=== PATIENT | male | born 1950 | race Two or more races ===

== ENCOUNTER → 2017-03-04 | Outpatient (REF) | payer MEDICARE ==
[2017-03-07 00:06] LABS: Lyme Disease IgG/IgM Antibodie <0.91 ISR (0.00-0.90); Lyme Disease IgM Ab Quantitati <0.80 index (0.00-0.79)
== END ==
LOC: M SFHCLERA 19:43
PROVIDERS: ATTEND Nurse Practitioner Family
DX: Z11.59 Encounter for screening for other viral diseases (principal)

== ENCOUNTER → 2017-11-30 | Outpatient (REF) | payer MEDICARE ==
[2017-11-30 13:50] LABS: SLIDE REVIEW Report; SOURCE PERIPHERAL SMEAR
[2017-11-30 14:00] LABS: FERRITIN 161 NG/ML (26-388); IRON (FE) 134 UG/DL (65-175); PERCENT SATURATION 35.9 % (19.7-50.0); TOTAL IRON BINDING CAPACITY 373 UG/DL (250-450)
[2017-11-30 14:13] LABS: VITAMIN B12 LEVEL 767 PG/ML (247-911)
[2017-12-01 12:16] LABS: HEPATITIS C VIRUS ABY INDEX 0.3 INDEX (<0.8)
== END ==
LOC: M LAB REF 13:10
DX: D69.6 Thrombocytopenia, unspecified (principal)
CPT/HCPCS: 83550

== ENCOUNTER → 2017-12-14 | Outpatient (REF) | payer MEDICARE ==
[2017-12-14 19:31] LABS: APPEARANCE, URINE CLEAR (CLEAR); BACTERIA, URINE AUTO 1+ (NEGATIVE); BILIRUBIN, URINE AUTO NEGATIVE (NEGATIVE); BLOOD, URINE BLOOD NEGATIVE (NEGATIVE); COLOR, URINE YELLOW (YELLOW); GLUCOSE, URINE (UA) AUTO 1+ mg/dL (NEGATIVE); KETONE, URINE AUTO NEGATIVE (NEGATIVE); LEUKOCYTE ESTERASE, URINE AUTO NEGATIVE (NEGATIVE); MUCUS, URINE SMALL (NEGATIVE); NITRITE, URINE AUTO NEGATIVE (NEGATIVE); PROTEIN, URINE AUTO 1+ mg/dL (NEGATIVE); RBC, URINE AUTO 0 /HPF (0-3); SPECIFIC GRAVITY URINE AUTO 1.021 (1.002-1.035); SQUAMOUS EPITHELIAL CELL UR AU 0 /HPF (0-6); UROBILINOGEN, URINE AUTO 0.2 mg/dL (0.0-2.0); WBC, URINE AUTO 0 /HPF (0-3)
== END ==
LOC: M SMT 17:22
DX: N40.1 Benign prostatic hyperplasia with lower urinary tract symptoms (principal)
CPT/HCPCS: 81001

== ENCOUNTER → 2018-01-13 | Outpatient (REF) | payer MEDICARE ==
[2018-01-13 20:52] LABS: APPEARANCE, URINE CLEAR (CLEAR); BACTERIA, URINE AUTO NEGATIVE (NEGATIVE); BILIRUBIN, URINE AUTO NEGATIVE (NEGATIVE); BLOOD, URINE BLOOD NEGATIVE (NEGATIVE); COLOR, URINE YELLOW (YELLOW); GLUCOSE, URINE (UA) AUTO NEGATIVE (NEGATIVE); KETONE, URINE AUTO NEGATIVE (NEGATIVE); LEUKOCYTE ESTERASE, URINE AUTO NEGATIVE (NEGATIVE); MUCUS, URINE SMALL (NEGATIVE); NITRITE, URINE AUTO NEGATIVE (NEGATIVE); PROTEIN, URINE AUTO 1+ mg/dL (NEGATIVE); RBC, URINE AUTO 0 /HPF (0-3); SQUAMOUS EPITHELIAL CELL UR AU 0 /HPF (0-6); UROBILINOGEN, URINE AUTO 0.2 mg/dL (0.0-2.0); WBC, URINE AUTO 0 /HPF (0-3)
== END ==
LOC: M SMT 17:12
DX: N40.1 Benign prostatic hyperplasia with lower urinary tract symptoms (principal)
CPT/HCPCS: 81001

== ENCOUNTER → 2018-02-17 | Outpatient (CLI) | payer MEDICARE | LOC: M SMT 10:21 | DX: N40.1 Benign prostatic hyperplasia with lower urinary tract symptoms (principal) | CPT/HCPCS: 76857 ==

== ENCOUNTER → 2018-04-07 | Outpatient (REF) | payer MEDICARE ==
[2018-04-07 12:52] LABS: BASO % 0.5 % (0.0-1.0); EOS # 0.1 10^3/uL (0.0-0.50); EOS % 2.2 % (0.0-3.0); HEMOGLOBIN 14.5 g/dl (13.5-17.5); IMMATURE GRANULOCYTE % 0.3 % (0-3.0); LYMPH # 1.4 10^3/uL (1.5-4.5); LYMPH % 22.5 % (24.0-44.0); MEAN CORPUSCULAR VOLUME 91.1 fl (80.0-96.0); MONO # 0.6 10^3/uL (0.0-0.8); MONO % 9.7 % (0.0-5.0); NEUTROPHILS # 4.1 10^3/uL (1.8-7.7); NEUTROPHILS % 64.8 % (36.0-66.0); PLATELET COUNT, AUTOMATED 165 10^3/uL (150-450); RED BLOOD COUNT 4.83 10^6/uL (4.30-6.10); RED CELL DISTRIBUTION WIDTH 13.1 % (11.5-14.5); WHITE BLOOD COUNT 6.3 10^3/uL (4.0-10.0)
[2018-04-07 13:11] LABS: C REACTIVE PROTEIN QUANTITATIV < 0.30 MG/DL (0.00-0.30)
[2018-04-07 13:11] LABS: RHEUMATOID FACTOR QUANT < 10.0 IU/ML (<15.0)
[2018-04-07 13:18] LABS: ERYTHROCYTE SEDIMENTATION RATE 9 mm/hr (0-20)
[2018-04-09 00:57] LABS: ANTINUCLEAR ANTIBODIES DIRECT Negative (Negative); Lyme Disease IgG/IgM Antibodie <0.91 ISR (0.00-0.90); Lyme Disease IgM Ab Quantitati <0.80 index (0.00-0.79)
== END ==
LOC: M LABDRAW1 11:51
DX: M25.561 Pain in right knee (principal)
CPT/HCPCS: 86140

== ENCOUNTER → 2024-09-18 | Outpatient (REF) | payer MEDICARE ==
[~2024-09-18] MED LIST: AMLO1TAB24 PO; ASPI81TA26 PO; B121000T PO; FINA5TAB2 PO; GLIM2TAB4 PO; LOPR1TAB6 PO; MULTCAP PO; NITR0.4S14 SL; REPA140I2 SC; TAMS-18 PO; TRAZ-252 PO; VALS1TAB68 PO; VICT18IN SC; ZYLO300T6 PO
[2024-09-18 12:31] LABS: BASO % 0.4 % (0.0-1.0); EOS # 0.2 10^3/uL (0.0-0.5); EOS % 3.4 % (0.0-3.0); HEMATOCRIT 42.1 % (42.0-52.0); HEMOGLOBIN 12.6 g/dl (13.5-17.5); LYMPH # 0.8 10^3/uL (1.5-5.0); LYMPH % 11.7 % (24.0-44.0); MEAN CORPUSCULAR HEMOGLOBIN 25.8 pg (27.0-33.0); MEAN CORPUSCULAR HGB CONC 29.9 g/dl (32.0-36.5); MEAN CORPUSCULAR VOLUME 86.1 fl (80.0-96.0); MONO # 0.6 10^3/uL (0.0-0.8); NEUTROPHILS # 5.4 10^3/uL (1.5-8.5); NEUTROPHILS % 76.4 % (36.0-66.0); PLATELET COUNT, AUTOMATED 176 10^3/uL (150-450); RED BLOOD COUNT 4.89 10^6/uL (4.30-6.10); WHITE BLOOD COUNT 7.1 10^3/uL (4.0-10.0)
[2024-09-18 13:12] LABS: ALBUMIN 3.7 G/DL (3.2-5.2); BILIRUBIN,TOTAL 0.4 MG/DL (0.3-1.2); CALCIUM LEVEL 9.5 MG/DL (8.3-10.6); CHOLESTEROL RISK RATIO 4.48 (<5); CREATININE FOR GFR 1.06 MG/DL (0.70-1.30); GLOMERULAR FILTRATION RATE 72.7 (>42); HDL CHOLESTEROL 37.5 MG/DL (>40); LDL CHOLESTEROL 75.5 MG/DL (<100); NON-HDL-C 130.5 MG/DL; POTASSIUM SERUM 4.5 MMOL/L (3.5-5.1); TOTAL PROTEIN 6.9 G/DL (5.7-8.2)
[2024-09-18 13:15] LABS: HEMOGLOBIN A1c 7.9 % (4.0-6.0)
== END ==
LOC: M LAB REF 11:19
PROVIDERS: ATTEND Internal Medicine Cardiovascular Disease
DX: D64.9 Anemia, unspecified (principal); E78.5 Hyperlipidemia, unspecified; E11.9 Type 2 diabetes mellitus without complications

== ENCOUNTER → 2025-01-27 | Outpatient (REF) | payer MEDICARE | LOC: M LAB REF 09:17 | PROVIDERS: ATTEND Physician Assistant | DX: S00.96XA Insect bite (nonvenomous) of unspecified part of head, initial encounter (principal) ==

== ENCOUNTER 2025-02-21 11:25 | Inpatient (IN) | payer MEDICARE, MEDICAID ==
[~2025-02-21] VITALS: Ht 167.6 cm; Wt 86.4 kg
[2025-02-21 11:56] LABS: VENOUS BASE EXCESS 3.8 (-2.0-2.0); VENOUS HCO3 29.0 MMOL/L (23.0-27.0); VENOUS O2 SATURATION 82.8 % (60.0-80.0); VENOUS PARTIAL PRESSURE CO2 45.7 mmHg (38.0-50.0); VENOUS PARTIAL PRESSURE O2 46.4 mmHg (30.0-50.0); VENOUS PH 7.420 UNITS (7.330-7.430); VENOUS STANDARD HCO3 27.5 MMOL/L; VENOUS TOTAL CO2 30.4 MMOL/L (24.0-28.0)
[2025-02-21 12:04] LABS: BASO # 0.0 10^3/uL (0.0-0.2); BASO % 0.4 % (0.0-1.0); EOS # 0.2 10^3/uL (0.0-0.5); EOS % 1.8 % (0.0-3.0); LYMPH # 0.9 10^3/uL (1.5-5.0); LYMPH % 9.0 % (24.0-44.0); MONO # 0.6 10^3/uL (0.0-0.8); MONO % 6.0 % (2.0-8.0); NEUTROPHILS # 8.0 10^3/uL (1.5-8.5); NEUTROPHILS % 82.6 % (36.0-66.0); PLATELET COUNT, AUTOMATED 196 10^3/uL (150-450)
[2025-02-21 12:34] LABS: CK-MB VALUE MASS 9.6 NG/ML (<3.6)
[2025-02-21 12:36] LABS: ALT/SGPT 27.0 U/L (7.0-40); AST/SGOT 35.0 U/L (<34); CPK CREATINE PHOSPHOKINASE 140.0 U/L (46-171); MB/CK RELATIVE INDEX 6.85 (< OR =4)
[2025-02-21 12:38] LABS: THYROXINE (T4) 8.4 UG/DL (4.5-10.9)
[2025-02-21] MEDS: FUROSEMIDE 40 MG/4 ML VIAL IV ONE ×2 (13:30→20:12)
[2025-02-21] MEDS: PIPERACILLIN/TAZOBACTAM SOD 4.5 GM in DEXTROSE 5% (D5W) ADV/MINI-BAG 50 ML IV ONE (13:30)
[2025-02-21] MEDS ORDERED: VANCOMYCIN HCL 1,000 MG, VIAL MATE ADAPTER 1 EACH in NS 250 ML IV ONE (13:30)
[2025-02-21 13:37] LABS: CK-MB VALUE MASS 9.4 NG/ML (<3.6); CPK CREATINE PHOSPHOKINASE 128.0 U/L (46-171); MB/CK RELATIVE INDEX 7.34 (< OR =4)
[2025-02-21 14:24] LABS: CALCIUM LEVEL 9.5 MG/DL (8.3-10.6); CARBON DIOXIDE LEVEL 30.0 MMOL/L (20-31); CHLORIDE LEVEL 101.0 MMOL/L (98-107); CREATININE FOR GFR 1.32 MG/DL (0.70-1.30); GLOMERULAR FILTRATION RATE 55.9 (>42); POTASSIUM SERUM 5.0 MMOL/L (3.5-5.1); SODIUM LEVEL 142.0 MMOL/L (136-145)
[2025-02-21] MEDS: VANCOMYCIN HCL 1,750 MG, VIAL MATE ADAPTER 1 EACH in NS 500 ML IV SCH (14:38)
[2025-02-21] MEDS ORDERED: GLUCOSE 4 GM CHEW PO PRN (14:50)
[2025-02-21] MEDS ORDERED: DEXTROSE 50% 50 ML SYRINGE IV PRN (14:50)
[2025-02-21] MEDS ORDERED: GLUCAGON INJ 1 MG VIAL SC PRN (14:50)
[2025-02-21] MEDS ORDERED: GABA-1172 PO (15:30)
[2025-02-21] MEDS ORDERED: BUME1TAB3 PO (15:30)
[2025-02-21] MEDS ORDERED: CEFU1TAB22 PO (15:30)
[2025-02-21] MEDS ORDERED: LANTINJ4 SQ (15:30)
[2025-02-21] MEDS ORDERED: FAMO1TAB11 PO (15:30)
[2025-02-21] MEDS ORDERED: PANT40TA29 PO (15:30)
[2025-02-21] MEDS ORDERED: SPIR-10 PO (15:30)
[2025-02-21] MEDS ORDERED: ISOS1TAB36 PO (15:30)
[2025-02-21] MEDS ORDERED: ENTR1TAB PO (15:32)
[2025-02-21] MEDS ORDERED: DAPA10TA5 PO (15:32)
[2025-02-21] MEDS ORDERED: CLOP75TA2 PO (15:32)
[2025-02-21] MEDS ORDERED: CARV3.12 PO (15:32)
[2025-02-21] MEDS ORDERED: SENN-188 PO (15:33)
[2025-02-21] MEDS ORDERED: HOME MED LIST COMPLETE! XX SCH (15:35)
[2025-02-21 15:45] VITALS: BP 126/62; TEMP 97.2; O2SAT 98
[2025-02-21] MEDS: HEPARIN SOD 5000 UNITS/ML 1 ML VIAL/SYRINGE SC SCH (17:46)
[2025-02-21] MEDS: INSULIN LISPRO (NovoLOG) PER UNIT SC SCH ×2 (18:52→21:00)
[2025-02-21 19:49] VITALS: BP 109/66; TEMP 96.9; O2SAT 97
[2025-02-21 20:06] VITALS: BP 116/62
[2025-02-21] MEDS: FAMOTIDINE 20 MG TAB PO SCH (20:13)
[2025-02-21] MEDS: PANTOPRAZOLE 40MG TAB PO SCH (20:13)
[2025-02-21] MEDS: SENNA 8.6 MG TAB PO SCH (20:13)
[2025-02-21] MEDS: CEFUROXIME 500 MG TAB PO SCH (20:13)
[2025-02-21] MEDS: GABAPENTIN 300 MG CAP PO SCH (20:14)
[2025-02-22] VITALS (26 sets, daily range): BP systolic 96–132; BP diastolic 54–70; TEMP 96.8–97.4; O2SAT 87–100
[2025-02-22] MEDS: ACETAMINOPHEN 325 MG TAB PO ONE ×2 (00:39→23:30)
[2025-02-22 05:44] LABS: BASO # 0.1 10^3/uL (0.0-0.2); BASO % 0.7 % (0.0-1.0); EOS # 0.3 10^3/uL (0.0-0.5); EOS % 3.7 % (0.0-3.0); LYMPH # 0.8 10^3/uL (1.5-5.0); LYMPH % 11.9 % (24.0-44.0); MONO # 0.6 10^3/uL (0.0-0.8); MONO % 8.8 % (2.0-8.0); NEUTROPHILS # 5.2 10^3/uL (1.5-8.5); NEUTROPHILS % 74.5 % (36.0-66.0); PLATELET COUNT, AUTOMATED 160 10^3/uL (150-450)
[2025-02-22 06:24] LABS: ALT/SGPT 25.0 U/L (7.0-40); AST/SGOT 31.0 U/L (<34); CALCIUM LEVEL 9.0 MG/DL (8.3-10.6); CARBON DIOXIDE LEVEL 30.0 MMOL/L (20-31); CHLORIDE LEVEL 101.0 MMOL/L (98-107); CREATININE FOR GFR 1.42 MG/DL (0.70-1.30); GLOMERULAR FILTRATION RATE 51.2 (>42); MAGNESIUM LEVEL 2.3 MG/DL (1.8-2.4); POTASSIUM SERUM 4.4 MMOL/L (3.5-5.1); SODIUM LEVEL 143.0 MMOL/L (136-145)
[2025-02-22] MEDS: LanTUS (INSULIN GLARGINE INJ) 1 UNITS/0.01 ML SC SCH (08:47)
[2025-02-22] MEDS: CLOPIDOGREL 75 MG TAB PO SCH (08:49)
[2025-02-22] MEDS: FINASTERIDE 5 MG TAB PO SCH (08:49)
[2025-02-22] MEDS: DAPAGLIFLOZIN PROPANEDIOL 10 MG TABLET PO SCH (08:49)
[2025-02-22] MEDS: ASPIRIN 81 MG ENTERIC TABLET PO SCH (08:49)
[2025-02-22] MEDS: SPIRONOLACTONE 12.5MG PER 1/2 TABLET PO SCH (08:50)
[2025-02-22] MEDS: FUROSEMIDE 40 MG/4 ML VIAL IV SCH (08:51)
[2025-02-22] MEDS: ISOSORBIDE MONONITRATE 60 MG XR TAB PO SCH (09:04)
[2025-02-22 12:16] LABS: APPEARANCE, URINE CLEAR (CLEAR); BACTERIA, URINE AUTO NEGATIVE (NEGATIVE); BILIRUBIN, URINE AUTO NEGATIVE (NEGATIVE); BLOOD, URINE BLOOD NEGATIVE (NEGATIVE); GLUCOSE, URINE (UA) AUTO 3+ mg/dL (NEGATIVE); KETONE, URINE AUTO NEGATIVE (NEGATIVE); LEUKOCYTE ESTERASE, URINE AUTO NEGATIVE (NEGATIVE); NITRITE, URINE AUTO NEGATIVE (NEGATIVE); PROTEIN, URINE AUTO NEGATIVE (NEGATIVE); RBC, URINE AUTO 4 /HPF (0-3); SPECIFIC GRAVITY URINE AUTO 1.010 (1.002-1.035); SQUAMOUS EPITHELIAL CELL UR AU 0 /HPF (0-6); UROBILINOGEN, URINE AUTO 0.2 mg/dL (0.0-2.0); WBC, URINE AUTO 1 /HPF (0-3)
[2025-02-22 12:31] LABS: POTASSIUM RANDOM URINE 34.0 MMOL/L; SODIUM,RANDOM URINE 104 MMOL/L
[2025-02-22] MEDS: FLUZONE HIGH DOSE (65+) 0.5 ML SYRINGE (25-26) IM.IMMUN ONE (17:35)
[2025-02-23] VITALS (13 sets, daily range): BP systolic 120–129; BP diastolic 58–70; TEMP 97–97.9; O2SAT 90–99
[2025-02-23] MEDS ORDERED: PILL CUTTER 1 EACH XX PRN (01:25)
[2025-02-23] MEDS: ONDANSETRON 4MG ORAL DISINTEGRATING TAB PO ONE (01:32)
[2025-02-23 05:25] LABS: BASO # 0.0 10^3/uL (0.0-0.2); BASO % 0.6 % (0.0-1.0); EOS # 0.4 10^3/uL (0.0-0.5); EOS % 5.3 % (0.0-3.0); LYMPH # 0.8 10^3/uL (1.5-5.0); LYMPH % 12.4 % (24.0-44.0); MONO # 0.5 10^3/uL (0.0-0.8); MONO % 8.2 % (2.0-8.0); NEUTROPHILS # 4.8 10^3/uL (1.5-8.5); NEUTROPHILS % 73.3 % (36.0-66.0); PLATELET COUNT, AUTOMATED 149 10^3/uL (150-450)
[2025-02-23 05:44] LABS: ALT/SGPT 22.0 U/L (7.0-40); AST/SGOT 22.0 U/L (<34); CALCIUM LEVEL 9.1 MG/DL (8.3-10.6); CARBON DIOXIDE LEVEL 32.0 MMOL/L (20-31); CHLORIDE LEVEL 102.0 MMOL/L (98-107); CREATININE FOR GFR 1.4 MG/DL (0.70-1.30); GLOMERULAR FILTRATION RATE 52.1 (>42); MAGNESIUM LEVEL 2.4 MG/DL (1.8-2.4); POTASSIUM SERUM 4.7 MMOL/L (3.5-5.1); SODIUM LEVEL 144.0 MMOL/L (136-145)
[2025-02-23] MEDS ORDERED: FURO40TA2 PO (08:36)
== END 2025-02-23 12:30 | disposition home health service (06) | DRG 291 ==
LOC: M ED 11:25 → EDBD 11:25 → M ED INP 14:49 → M PCU 15:40
PROVIDERS: ADMIT Internal Medicine; ATTEND Internal Medicine
DX: I13.0 Hypertensive heart and chronic kidney disease with heart failure and stage 1 through stage 4 chronic kidney disease, or unspecified chronic kidney disease (principal); I50.23 Acute on chronic systolic (congestive) heart failure; J96.11 Chronic respiratory failure with hypoxia; I69.354 Hemiplegia and hemiparesis following cerebral infarction affecting left non-dominant side; Z66 Do not resuscitate; I25.10 Atherosclerotic heart disease of native coronary artery without angina pectoris; I25.2 Old myocardial infarction; I73.9 Peripheral vascular disease, unspecified; I65.29 Occlusion and stenosis of unspecified carotid artery; E11.42 Type 2 diabetes mellitus with diabetic polyneuropathy; E78.5 Hyperlipidemia, unspecified; N40.1 Benign prostatic hyperplasia with lower urinary tract symptoms; E11.22 Type 2 diabetes mellitus with diabetic chronic kidney disease; E11.51 Type 2 diabetes mellitus with diabetic peripheral angiopathy without gangrene; N18.30 Chronic kidney disease, stage 3 unspecified; M24.412 Recurrent dislocation, left shoulder; K21.9 Gastro-esophageal reflux disease without esophagitis; Z79.82 Long term (current) use of aspirin; Z79.4 Long term (current) use of insulin; Z79.899 Other long term (current) drug therapy; Z91.048 Other nonmedicinal substance allergy status; Z99.81 Dependence on supplemental oxygen; Z95.5 Presence of coronary angioplasty implant and graft; Z86.19 Personal history of other infectious and parasitic diseases

== ENCOUNTER 2025-03-12 10:47 | Inpatient (IN) | payer MEDICARE, MEDICAID ==
[~2025-03-12] VITALS: Ht 167.6 cm; Wt 91.2 kg
[~2025-03-12 10:47] MED LIST changes: +BUME1TAB3 PO; +CARV3.12 PO; +CEFU1TAB22 PO; +CLOP75TA2 PO; +DAPA10TA5 PO; +ENTR1TAB PO; +FAMO1TAB11 PO; +FURO40TA2 PO; +GABA-1172 PO; +ISOS1TAB36 PO; +LANTINJ4 SQ; +PANT40TA29 PO; +SENN-188 PO; +SPIR-10 PO
[2025-03-12 11:38] LABS: BASO # 0.0 10^3/uL (0.0-0.2); BASO % 0.6 % (0.0-1.0); EOS # 0.2 10^3/uL (0.0-0.5); EOS % 3.1 % (0.0-3.0); LYMPH # 0.7 10^3/uL (1.5-5.0); LYMPH % 12.3 % (24.0-44.0); MONO # 0.5 10^3/uL (0.0-0.8); MONO % 9.8 % (2.0-8.0); NEUTROPHILS # 4.0 10^3/uL (1.5-8.5); NEUTROPHILS % 74.0 % (36.0-66.0); PLATELET COUNT, AUTOMATED 147 10^3/uL (150-450)
[2025-03-12 11:55] LABS: ALT/SGPT 38.0 U/L (7.0-40); AST/SGOT 27.0 U/L (<34); CALCIUM LEVEL 8.9 MG/DL (8.3-10.6); CARBON DIOXIDE LEVEL 27.0 MMOL/L (20-31); CHLORIDE LEVEL 101.0 MMOL/L (98-107); CK-MB VALUE MASS 3.3 NG/ML (<3.6); CREATININE FOR GFR 1.68 MG/DL (0.70-1.30); GLOMERULAR FILTRATION RATE 41.9 (>42); POTASSIUM SERUM 5.6 MMOL/L (3.5-5.1); SODIUM LEVEL 138.0 MMOL/L (136-145)
[2025-03-12 11:56] LABS: CPK CREATINE PHOSPHOKINASE 79.0 U/L (46-171); MB/CK RELATIVE INDEX 4.17 (< OR =4)
[2025-03-12] MEDS: FUROSEMIDE 100 MG/10 ML VIAL IV ONE (12:49)
[2025-03-12] MEDS ORDERED: FARX1TAB3 PO (13:58)
[2025-03-12] MEDS ORDERED: FURO40TA2 PO (14:03)
[2025-03-12] MEDS ORDERED: ATOR80TA59 PO (14:03)
[2025-03-12] MEDS ORDERED: HOME MED LIST COMPLETE! XX SCH (14:05)
[2025-03-12] MEDS: GABAPENTIN 300 MG CAP PO SCH (16:00)
[2025-03-12] MEDS: ACETAMINOPHEN 325 MG TAB PO PRN (16:01)
[2025-03-12 17:50] VITALS: BP 118/62; TEMP 97.2; O2SAT 95
[2025-03-12] MEDS: HEPARIN SOD 5000 UNITS/ML 1 ML VIAL/SYRINGE SQ SCH (20:48)
[2025-03-12] MEDS: FAMOTIDINE 20 MG TAB PO SCH (20:48)
[2025-03-12] MEDS: ATORVASTATIN 20 MG TAB PO SCH (20:48)
[2025-03-12] MEDS: PANTOPRAZOLE 40MG TAB PO SCH (20:49)
[2025-03-12] MEDS ORDERED: ENTRESTO 24-26 MG TABLET (SACUBITRIL/VALSARTAN) PO SCH (21:00)
[2025-03-12 21:02] VITALS: BP 120/62; TEMP 97.3; O2SAT 95
[2025-03-13 03:53] VITALS: BP 124/63; TEMP 98.1; O2SAT 95
[2025-03-13 07:00] LABS: PLATELET COUNT, AUTOMATED 142 10^3/uL (150-450)
[2025-03-13 07:19] LABS: CALCIUM LEVEL 9.2 MG/DL (8.3-10.6); CARBON DIOXIDE LEVEL 27.0 MMOL/L (20-31); CHLORIDE LEVEL 103.0 MMOL/L (98-107); CREATININE FOR GFR 1.58 MG/DL (0.70-1.30); GLOMERULAR FILTRATION RATE 45.1 (>42); POTASSIUM SERUM 5.3 MMOL/L (3.5-5.1); SODIUM LEVEL 140.0 MMOL/L (136-145)
[2025-03-13] MEDS: DAPAGLIFLOZIN PROPANEDIOL 10 MG TABLET PO SCH (08:47)
[2025-03-13] MEDS: ASPIRIN 81 MG ENTERIC TABLET PO SCH (08:47)
[2025-03-13] MEDS: CLOPIDOGREL 75 MG TAB PO SCH (08:48)
[2025-03-13] MEDS: FINASTERIDE 5 MG TAB PO SCH (08:49)
[2025-03-13] MEDS: ISOSORBIDE MONONITRATE 60 MG XR TAB PO SCH (08:52)
[2025-03-13] MEDS: SPIRONOLACTONE 12.5MG PER 1/2 TABLET PO SCH (08:53)
[2025-03-13] MEDS: FUROSEMIDE 40 MG/4 ML VIAL IV SCH (08:54)
[2025-03-13 09:10] LABS: ESTIMATED AVERAGE GLUCOSE 177.0 MG/DL (60-110)
[2025-03-13 11:58] LABS: CALCIUM LEVEL 9.2 MG/DL (8.3-10.6); CARBON DIOXIDE LEVEL 27.0 MMOL/L (20-31); CHLORIDE LEVEL 103.0 MMOL/L (98-107); CREATININE FOR GFR 1.54 MG/DL (0.70-1.30); GLOMERULAR FILTRATION RATE 46.5 (>42); POTASSIUM SERUM 5.2 MMOL/L (3.5-5.1); SODIUM LEVEL 140.0 MMOL/L (136-145)
[2025-03-13 20:21] VITALS: BP 119/64; TEMP 97.9; O2SAT 97
[2025-03-14] VITALS (30 sets, daily range): BP systolic 95–188; BP diastolic 51–110; TEMP 96.8–98.1; O2SAT 92–100
[2025-03-14] MEDS: FUROSEMIDE 40 MG/4 ML VIAL IV ONE ×2 (05:22→06:55)
[2025-03-14] MEDS ORDERED: IPRATROPIUM 0.5 MG/ALBUTEROL 2.5 MG INH SOL UD 3 ML As Ordered ONE (05:51)
[2025-03-14] MEDS: MORPHINE 10 MG/0.5 ML ORAL CONCENTRATE SOLUTION U/D SL STA (06:03)
[2025-03-14] MEDS: IPRATROPIUM 0.5 MG/ALBUTEROL 2.5 MG INH SOL UD 3 ML NEB SCH (06:05)
[2025-03-14 06:31] LABS: ABG BASE EXCESS -5.6 (-2.0-2.0); ABG HCO3 21.8 MMOL/L (22.0-26.0); ABG O2 SATURATION 99.4 % (95.0-99.0); ABG PARTIAL PRESSURE CO2 50.9 mmHg (35.0-45.0); ABG PARTIAL PRESSURE O2 257.3 mmHg (75.0-100.0); ABG STANDARD HCO3 19.9 MMOL/L. (22.0-26.0); ABG TOTAL CO2 23.4 MMOL/L (23.0-31.0)
[2025-03-14 06:32] LABS: ABG pH (ARTERIAL) 7.250 UNITS (7.350-7.450)
[2025-03-14 06:53] LABS: CALCIUM LEVEL 9.2 MG/DL (8.3-10.6); CARBON DIOXIDE LEVEL 24.0 MMOL/L (20-31); CHLORIDE LEVEL 101.0 MMOL/L (98-107); CREATININE FOR GFR 1.66 MG/DL (0.70-1.30); GLOMERULAR FILTRATION RATE 42.5 (>42); MAGNESIUM LEVEL 3.0 MG/DL (1.8-2.4); POTASSIUM SERUM 5.0 MMOL/L (3.5-5.1); SODIUM LEVEL 139.0 MMOL/L (136-145)
[2025-03-14] MEDS ORDERED: NITROGLYCERIN 0.3 MG SUBL TAB SL STA (06:56)
[2025-03-14] MEDS: MORPHINE 4 MG/ML 1 ML VIAL IV STA (07:02)
[2025-03-14] MEDS: NITROGLYCERIN 0.4 MG SUBL TABLET SL STA (07:03)
[2025-03-14] MEDS: FUROSEMIDE 100 MG/10 ML VIAL IV SCH (09:22)
[2025-03-14] MEDS: PANTOPRAZOLE 40MG VIAL IV ONE (11:17)
[2025-03-14] MEDS ORDERED: DEXTROSE 50% 50 ML SYRINGE IV PRN (15:45)
[2025-03-14] MEDS ORDERED: GLUCAGON INJ 1 MG VIAL SC PRN (15:45)
[2025-03-14] MEDS ORDERED: GLUCOSE 4 GM CHEW PO PRN (15:45)
[2025-03-14] MEDS: LanTUS (INSULIN GLARGINE INJ) 1 UNITS/0.01 ML SC SCH (16:32)
[2025-03-14 18:29] LABS: CALCIUM LEVEL 8.9 MG/DL (8.3-10.6); CARBON DIOXIDE LEVEL 26.0 MMOL/L (20-31); CHLORIDE LEVEL 100.0 MMOL/L (98-107); CREATININE FOR GFR 1.78 MG/DL (0.70-1.30); GLOMERULAR FILTRATION RATE 39.1 (>42); POTASSIUM SERUM 5.3 MMOL/L (3.5-5.1); SODIUM LEVEL 138.0 MMOL/L (136-145)
[2025-03-14] MEDS: INSULIN LISPRO (NovoLOG) PER UNIT SC SCH ×2 (18:38→20:36)
[2025-03-14] MEDS: MAG SULF 1GM/100ML (MAG RUN) 1 GM in IV 1 EA IV ONE (20:11)
[2025-03-14] MEDS: FUROSEMIDE 100 MG/10 ML VIAL IV ONE (20:33)
[2025-03-14] MEDS: SENNA 8.6 MG TAB PO PRN (20:33)
[2025-03-15] VITALS (23 sets, daily range): BP systolic 91–133; BP diastolic 54–71; TEMP 97–99.3; O2SAT 93–99
[2025-03-15 06:42] LABS: CALCIUM LEVEL 9.0 MG/DL (8.3-10.6); CARBON DIOXIDE LEVEL 26.0 MMOL/L (20-31); CHLORIDE LEVEL 101.0 MMOL/L (98-107); CREATININE FOR GFR 2.07 MG/DL (0.70-1.30); GLOMERULAR FILTRATION RATE 32.6 (>42); MAGNESIUM LEVEL 2.7 MG/DL (1.8-2.4); POTASSIUM SERUM 5.1 MMOL/L (3.5-5.1); SODIUM LEVEL 138.0 MMOL/L (136-145)
[2025-03-15] MEDS: METOPROLOL TART 12.5 MG PER 1/2 TAB PO SCH (09:24)
[2025-03-15] MEDS: FUROSEMIDE 40 MG/4 ML VIAL IV SCH (09:25)
[2025-03-15 14:24] LABS: ABG BASE EXCESS -0.9 (-2.0-2.0); ABG HCO3 23.5 MMOL/L (22.0-26.0); ABG O2 SATURATION 97.3 % (95.0-99.0); ABG PARTIAL PRESSURE CO2 37.9 mmHg (35.0-45.0); ABG PARTIAL PRESSURE O2 99.4 mmHg (75.0-100.0); ABG STANDARD HCO3 23.7 MMOL/L. (22.0-26.0); ABG TOTAL CO2 24.6 MMOL/L (23.0-31.0); ABG pH (ARTERIAL) 7.410 UNITS (7.350-7.450)
[2025-03-15 14:40] LABS: BASO # 0.0 10^3/uL (0.0-0.2); BASO % 0.1 % (0.0-1.0); EOS # 0.0 10^3/uL (0.0-0.5); EOS % 0.0 % (0.0-3.0); LYMPH # 0.6 10^3/uL (1.5-5.0); LYMPH % 6.1 % (24.0-44.0); MONO # 0.8 10^3/uL (0.0-0.8); MONO % 8.1 % (2.0-8.0); NEUTROPHILS # 7.9 10^3/uL (1.5-8.5); NEUTROPHILS % 85.4 % (36.0-66.0); PLATELET COUNT, AUTOMATED 156 10^3/uL (150-450)
[2025-03-15] MEDS ORDERED: HEPARIN SOD 5000 UNITS/ML 1 ML VIAL/SYRINGE IV PRN (14:50)
[2025-03-15 15:08] LABS: PLATELET COUNT, AUTOMATED 166 10^3/uL (150-450)
[2025-03-15] MEDS: FUROSEMIDE injection 100 MG, VIAL 2 BAG 13MM ADAPTER 1 EACH in NS 100 ML IV SCH (15:10)
[2025-03-15] MEDS: HEPARIN SOD 5000 UNITS/ML 1 ML VIAL/SYRINGE IV ONE (15:48)
[2025-03-15] MEDS: HEPARIN DRIP 25,000 UNITS in IV 1 EA IV SCH (15:57)
[2025-03-15] MEDS: MIDODRINE 5 MG TAB PO SCH (15:58)
== END 2025-03-15 16:39 | disposition short-term general hospital (02) | DRG 682 ==
LOC: EDBD 10:47 → M ED 10:47 → M ED INP 15:27 → M MSPAV 17:50 → M ICU 03-14 06:05
PROVIDERS: ADMIT Internal Medicine; ATTEND Internal Medicine
PROC: B246ZZZ Ultrasonography of Right and Left Heart (ICD-10-PCS; principal; 2025-03-14)
DX: I13.10 Hypertensive heart and chronic kidney disease without heart failure, with stage 1 through stage 4 chronic kidney disease, or unspecified chronic kidney disease (principal); I21.4 Non-ST elevation (NSTEMI) myocardial infarction; I50.23 Acute on chronic systolic (congestive) heart failure; J81.0 Acute pulmonary edema; J96.21 Acute and chronic respiratory failure with hypoxia; J96.22 Acute and chronic respiratory failure with hypercapnia; I69.354 Hemiplegia and hemiparesis following cerebral infarction affecting left non-dominant side; N17.9 Acute kidney failure, unspecified; Z66 Do not resuscitate; I25.10 Atherosclerotic heart disease of native coronary artery without angina pectoris; R26.89 Other abnormalities of gait and mobility; E78.5 Hyperlipidemia, unspecified; I73.9 Peripheral vascular disease, unspecified; E11.51 Type 2 diabetes mellitus with diabetic peripheral angiopathy without gangrene; N40.0 Benign prostatic hyperplasia without lower urinary tract symptoms; E87.5 Hyperkalemia; E11.42 Type 2 diabetes mellitus with diabetic polyneuropathy; K21.9 Gastro-esophageal reflux disease without esophagitis; Z79.82 Long term (current) use of aspirin; Z79.4 Long term (current) use of insulin; Z79.899 Other long term (current) drug therapy; Z91.048 Other nonmedicinal substance allergy status; Z99.81 Dependence on supplemental oxygen; Z95.5 Presence of coronary angioplasty implant and graft; N18.9 Chronic kidney disease, unspecified